=== PATIENT | female | born 1955 | race Caucasian/White ===

== ENCOUNTER 2019-05-19 15:39 | Emergency (ER) | payer BC, OTHER ==
[2019-05-19 16:01] VITALS: BP 157/77
--- NOTE | 2019-05-19 16:14 | UC ---
Lower Extremity/Ankle HPI - HPI Summary HPI Summary: 64-year-old woman comes in with a chief complaint of right lower leg swelling and tenderness. It has been going on for several days getting worse. No known trauma. No history of blood clots. Patient does have varicose veins. No fevers no chills. No chest pain no shortness of breath. No recent travel. Patient's not a current smoker. Not taking any estrogens. - History of Current Complaint Chief Complaint: UCLowerExtremity Stated Complaint: RT LEG COMPLAINT Time Seen by Provider: 05/19/19 15:56 Pain Intensity: 0 - Allergies/Home Medications Allergies/Adverse Reactions: Allergies Allergy/AdvReac Type Severity Reaction Status Date / Time No Known Allergies Allergy Verified 05/19/19 15:56 Home Medications: Home Medications Albuterol HFA INHALER* [Ventolin HFA Inhaler*] 1 - 2 puff INH Q4H PRN 05/19/19 [ History Confirmed 05/19/19] Aspirin EC TAB* [Ecotrin EC Low Dose 81 MG*] 81 mg PO DAILY 05/19/19 [History Confirmed 05/19/19] Cholecalciferol TAB* [Vitamin D TAB*] 1,000 unit PO DAILY 05/19/19 [History Confirmed 05/19/19] Fluticasone-Salmeterol 250-50* [Advair Diskus 250-50*] 1 puff INH BID 05/19/19 [ History Confirmed 05/19/19] Levothyroxine TAB* [Synthroid TAB*] 25 mcg PO DAILY 05/19/19 [History Confirmed 05/19/19] Lutein [Natural Lutein] 20 mg PO DAILY 05/19/19 [History Confirmed 05/19/19] Omeprazole (Nf) [Prilosec (NF)] 40 mg PO DAILY 05/19/19 [History Confirmed 05/19] PMH/Surg Hx/FS Hx/Imm Hx Previously Healthy: Yes Endocrine History: Hypothyroidism Respiratory History: Asthma GI/ History: Gastroesophageal Reflux - Surgical History Surgical History: Yes Surgery Procedure, Year, and Place: Breast Fibroids, ~2003 ~1995, [place]; Tubal Ligation, ~1991, [place] - Family History Known Family History: Positive: Non-Contributory - Social History Alcohol Use: None Substance Use Type: None Smoking Status (MU): Former Smoker Type: Cigarettes Length of Time of Smoking/Using Tobacco: 1 1/2 PPD x 20 Years When Did the Patient Quit Smoking/Using Tobacco: ~1988 - Immunization History Most Recent Influenza Vaccination: 2013 Review of Systems All Other Systems Reviewed And Are Negative: Yes Constitutional: Positive: Negative Skin: Positive: Other - SEE HPI Eyes: Positive: Negative ENT: Positive: Negative Respiratory: Positive: Negative Cardiovascular: Positive: Negative Gastrointestinal: Positive: Negative Motor: Positive: Negative Neurovascular: Positive: Negative Musculoskeletal: Positive: Calf Tenderness, Other: - SEE HPI Neurological: Positive: Negative Psychological: Positive: Negative Is Patient Immunocompromised?: No Physical Exam Triage Information Reviewed: Yes Appearance: Well-Appearing, No Pain Distress, Well-Nourished Vital Signs: Initial Vital Signs Temp 98.6 F 05/19/19 15:55 Pulse 81 05/19/19 15:55 Resp 17 05/19/19 15:55 BP 157/77 05/19/19 15:55 Pulse Ox 99 05/19/19 15:55 Vital Signs Reviewed: Yes Eye Exam: Normal Eyes: Positive: Conjunctiva Clear Neck: Positive: Supple, Nontender Respiratory: Positive: No respiratory distress Musculoskeletal: Positive: Strength Intact, ROM Intact, Other: - Right calf on the medial aspect has an area proximal 10 cm diameter slightly erythematous and tender to palpation slightly swollen. Normal capillary refill distally. Normal sensation distally. Neurological: Positive: Alert, Muscle Tone Normal Psychological: Positive: Age Appropriate Behavior Skin: Positive: Other - Right calf medial anterior aspect of the 10 cm area of blanching erythema. Lower Extremity Course/Dx - Course Course Of Treatment: Overall patient is low risk by history for DVT however she does have an area of erythema tenderness and swelling of right calf. At this time in clinic we do not have ultrasound. I recommended further evaluation emergency Department to rule out DVT. - Differential Dx/Diagnosis Provider Diagnosis: Tenderness of right calf Discharge ED - Sign-Out/Discharge Documenting (check all that apply): Patient Departure All imaging exams completed and their final reports reviewed: No Studies - Discharge Plan Condition: Stable Disposition: HOME-RECOMMEND TO ED Referrals: Barrie Andrade MD [Primary Care Provider] - Additional Instructions: GO DIRECTLY TO THE EMERGENCY DEPARTMENT FOR FURTHER EVALUATION AND CARE OF YOUR RIGHT CALF SWELLING AND TENDERNESS TO EVALUATE FOR A BLOOD CLOT. - Billing Disposition and Condition Condition: STABLE Disposition: Home-Recommend to ED
== END 2019-05-19 16:18 | disposition home health service (06) ==
LOC: UCCORT 15:39
DX: R22.41 Localized swelling, mass and lump, right lower limb (principal); M79.661 Pain in right lower leg; E03.9 Hypothyroidism, unspecified; K21.9 Gastro-esophageal reflux disease without esophagitis; J45.909 Unspecified asthma, uncomplicated; Z87.891 Personal history of nicotine dependence; Z79.82 Long term (current) use of aspirin
CPT/HCPCS: 99212; G0463